=== PATIENT | female | born 1965 | race Asian ===

== ENCOUNTER 2017-04-07 20:52 | Emergency (ER) | payer OTHER ==
[~2017-04-07] VITALS: Ht 160 cm; Wt 69.0 kg
[~2017-04-07 20:52] MED LIST: ALBU8.5H3 INH; AMOX1TAB10 PO; CARAS PO; HYDR-3498 PO; LABE200T25 PO; LORA-441 PO; MYCO500T13 PO; PANT40TA3 PO; TACR1CAP PO; TACR5CAP PO; TYL500 PO
[2017-04-07 21:00] VITALS: Ht 160 cm; Wt 69.0 kg
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
[2017-04-07 22:59] VITALS: BP 131/90; PULSE 75; RESP 18
== END 2017-04-07 23:00 | disposition home or self-care (01) ==
LOC: FTE 20:52
DX: S09.90XA Unspecified injury of head, initial encounter (principal); R51 Headache; Y08.89XA Assault by other specified means, initial encounter
CPT/HCPCS: 70450

== ENCOUNTER 2017-10-08 15:01 | Emergency (ER) | payer OTHER ==
[~2017-10-08] VITALS: Ht 160 cm; Wt 70.8 kg
[2017-10-08 15:28] VITALS: Ht 160 cm; Wt 70.8 kg
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
[2017-10-08] MEDS ORDERED: HYDROCODONE/APAP (5/325) TAB PO ONE (18:00)
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
[2017-10-08] MEDS ORDERED: NAPR-260 PO (20:37)
[2017-10-08] MEDS ORDERED: FAMO-96 PO (20:38)
[2017-10-08] MEDS ORDERED: HYDR-906 PO (20:39)
== END 2017-10-08 21:26 | disposition home or self-care (01) ==
LOC: FTE 15:01
DX: S80.01XA Contusion of right knee, initial encounter (principal); I10 Essential (primary) hypertension; W01.0XXA Fall on same level from slipping, tripping and stumbling without subsequent striking against object, initial encounter; Y92.9 Unspecified place or not applicable
CPT/HCPCS: 73562; Z7502; Z7610